=== PATIENT | female | born 1995 | race Caucasian/White ===

== ENCOUNTER 2017-03-12 14:47 | Emergency (ER) | payer OTHER, BC ==
[~2017-03-12] VITALS: Ht 175.3 cm; Wt 83.9 kg
[2017-03-12] MEDS ORDERED: ETON68IM SQ (14:56)
[2017-03-12] MEDS ORDERED: TRANEXAMIC AC 1000 MG/10ML SDV ONE (15:05)
--- NOTE | 2017-03-12 15:08 | ER Report ---
History and Physical Time Seen By MD: 14:51 Hx. 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 PT held pressure but unable to stop the bleeding so came to ed. has full range of motion. REVIEW OF SYSTEMS: Skin: + tip of finger avulsion Musculoskeletal: Full range of motion of finger Allergies: Coded Allergies: No Known Drug Allergies (Unverified , 03/12/17) Home Meds Reported Medications Etonogestrel (NEXPLANON) 68 Mg Implant, 68 MG SQ DIRECTED, IMPLANT 03/12/17 Past Medical/Surgical History Pmhx and surgical hx: non contribuitory Reviewed Nurses Notes: Yes Old Medical Records Reviewed: No Smoking Status: Never Smoker Hx Alcohol Use: No Constitutional Vital Sign - Last 24 Hours 03/12/17 14:54 Temp 98.5 Pulse 71 Resp 16 B/P (MAP) 141/98 Pulse Ox 96 O2 Delivery Room Air Physical Exam General Appearance: The patient is alert, has no immediate need for airway protection and no signs of toxicity. Eyes: Pupils equal and round no pallor or injection, EOMI Respiratory: There are no retractions, lungs are clear to auscultation. Cardiovascular: Regular rate and rhythm. pulses are equal and symmetrical Skin: + 5mm avulsion of skin at tip of left index finger. Neuro: grossly intact Extremities are nontender, non swollen and have full range of motion. DIFFERENTIAL DIAGNOSIS: After history and physical exam differential diagnosis was considered for finger tip skin avulsion Medical Decision Making ED Course/Re-evaluation ED Course 03/12/2017 3:21:19 pm txa placed on tip of finger to control bleeding. 03/12/2017 3:27:22 pm Finger still bleeding with txa and pressure. Surgicel placed on open area that is bleeding. Bleeding significantly slowed with the surgicel. will place bulky bandage. PTs tetnus is utd Decision to Disposition Date: Mar 12, 2017 Decision to Disposition Time: 15:41 Depart Departure Latest Vital Signs Vital Signs Date Time Temp Pulse Resp B/P (MAP) Pulse Ox O2 Delivery O2 Flow Rate FiO2 03/12/17 14:54 98.5 71 16 141/98 96 Room Air Impression: Primary Impression: Avulsion of skin of index finger Condition: Improved Disposition: HOME OR SELF-CARE Patient Instructions: Skin Avulsion (ED) Additional Instructions: You cut off the skin tip of your finger. It will take approximately 2 weeks for new skin to fully fill in. The wound may continue to ooz today. Keep the dressing on until tomorrow if possible. When at work you will need to wear a glove or finger condom (found in pharmacy) to keep wound clean and covered. Problem Qualifiers Primary Impression: Avulsion of skin of index finger Encounter type: initial encounter Qualified Codes: S61.208A - Unspecified open wound of other finger without damage to nail, initial encounter CECELIA OSBORN DO Mar 12, 2017 15:08
[2017-03-12 15:49] VITALS: BP 135/89
== END 2017-03-12 15:49 | disposition home or self-care (01) ==
LOC: ER 15:09
DX: S61.201A Unspecified open wound of left index finger without damage to nail, initial encounter (principal)
CPT/HCPCS: 99283